=== PATIENT | female | born 1985 | race Caucasian/White ===

== ENCOUNTER 2025-02-26 13:09 | Emergency (ER) | payer BC ==
[2025-02-26] MEDS: methylPREDNISolone Sodium Succinate 125 MG/2 ML SDV IVPUSH ONE (13:26)
== END 2025-02-26 16:56 | disposition home or self-care (01) ==
LOC: MW.ED 13:09
DX: T63.441A Toxic effect of venom of bees, accidental (unintentional), initial encounter (principal); Z91.030 Bee allergy status
CPT/HCPCS: 96374; 99284; J1308; 99283